=== PATIENT | female | born 1965 | race American Indian/Alaskan Native ===

== ENCOUNTER 2017-07-15 16:23 | Emergency (ER) | payer SELFPAY ==
[2017-07-15] MEDS ORDERED: ZESTRIL PO ONE (18:36)
[2017-07-15] MEDS ORDERED: DELTASONE PO ONE (18:37)
[2017-07-15] MEDS ORDERED: TRIMOX PO ONE (18:38)
--- NOTE | 2017-07-15 18:47 | Emergency Department Report ---
HPI - General Chief Complaint: Medical Clearance Time Seen by Provider: 07/15/17 18:34 - HPI HPI: 51-year-old -[place] female comes in for complaint of facial swelling since Monday. Patient reports that she started with a bump to the back of her mouth on Monday and that subsided but didn't start having left side swelling to her face and neck. Patient reports that she's tried salt water swallows. Patient states that the possible she has a bad tooth. It was noted that patient has elevated blood pressure. Patient reported that she noticed elevation of her blood pressure when she checked it at [employer] the other day. She has no past medical history currently has no primary care has no current medications. Up-to-date on her vaccines and she is having sporadic periods going through menopause. ED Past Medical Hx - Past Medical History Previous Medical History?: No - Surgical History Past Surgical History?: No - Social History Smoking Status: Never Smoker Substance Use Type: None - Medications Home Medications: Home Medications Medication Instructions Recorded Confirmed Last Taken Type Amoxicillin [Trimox CAP] 500 mg PO TID #30 capsule 07/15/17 Unknown Rx Hydrochlorothiazide [Hctz] 12.5 mg PO QDAY #30 capsule 07/15/17 Unknown Rx amLODIPine [Norvasc] 10 mg PO DAILY #30 tab 07/15/17 Unknown Rx ED Review of Systems ROS: Stated complaint: FACIAL SWELLING Other details as noted in HPI Constitutional: denies: chills, fever Eyes: denies: eye pain, eye discharge, vision change ENT: other Respiratory: denies: cough, shortness of breath, wheezing Cardiovascular: denies: chest pain, palpitations Endocrine: no symptoms reported Gastrointestinal: denies: abdominal pain, nausea, diarrhea Genitourinary: denies: urgency, dysuria, discharge Musculoskeletal: denies: back pain, joint swelling, arthralgia Skin: denies: rash, lesions Neurological: denies: headache, weakness, paresthesias Psychiatric: denies: anxiety, depression Hematological/Lymphatic: denies: easy bleeding, easy bruising Physical Exam - Physical Exam Vital Signs: Vital Signs 07/15/17 16:26 Temperature 98.8 F Pulse Rate 106 H Respiratory 20 Rate Blood Pressure 171/97 O2 Sat by Pulse 98 Oximetry Physical Exam: GENERAL: Alert and oriented x3, no apparent distress, Normal Gait, atraumatic. HEAD: Head is normocephalic and a-traumatic. Mild left side facial swelling EYES: Extra ocular muscles are intact. Pupils are equal, round, and reactive to light and accommodation. EARS: symetrical, atraumatic, non tender, ear canal clear and moderate cerumen, tympanic membrance non inflamed. gross auditory nml bilaterally. NOSE: Nose symetrical, Nontender,Nares appeared normal. MOUTH:Mouth is well hydrated and without lesions. Tonsils nonerythematous or swollen, Uvula midline, Tongue not elevated. Mucous membranes are moist. Posterior pharynx clear, no exudate or lesions. Patent airways. NECK: Supple. Non edematous, No carotid bruits. Mild left lymphadenopathy. LUNGS: Symetrical with respiration, No wheezing, no rales or crackles, CTAB. HEART: S1, S2 present, regular rate and rhythm without murmur, no rubs, no gallops. EXTREMITIES/MUSCULOSKELETAL: No cyanosis, clubbing, rash, lesions or edema. Full ROM bilaterally. UE/LE Pulses 2+ bilaterally. LE and UE 5+ strength bilaterally NEUROLOGIC: No focal Deficit, Cranial nerves II through XII are grossly intact. No loss of sensation, No facial droop, PSYCHIATRIC: Mood is congruent with affect, denies suicidal or homicidal ideations. SKIN: Warm and dry, No lesions, No ulceration or induration present ED Course Vital Signs 07/15/17 16:26 Temperature 98.8 F Pulse Rate 106 H Respiratory 20 Rate Blood Pressure 171/97 O2 Sat by Pulse 98 Oximetry - Reevaluation(s) Reevaluation #1: 07/15/17 22:21 Reevaluated patient since blood pressures been elevated patient denies any shortness of breathing she denies any chest pain she reports that she is voiding with no problems she is able to drink fluids she has no headache no nausea no vomiting no change in vision. I discussed the patient is very imperative that she follows up with her primary care provider I have referred her to [facility]. ED Medical Decision Making - Medical Decision Making Patient has been evaluated by this provider fast track. I discussed the patient will place her on antibiotics and steroids during her visit here. And have her follow up with her primary care provider which I will list one below. Critical care attestation.: If time is entered above; I have spent that time in minutes in the direct care of this critically ill patient, excluding procedure time. ED Disposition Clinical Impression: Elevated blood pressure reading, Left facial swelling Disposition: DC-01 TO HOME OR SELFCARE Is pt being admited?: No Does the pt Need Aspirin: No Condition: Stable Instructions: Heart Healthy Diet (ED), DASH Eating Plan (ED), Hypertension (ED) Additional Instructions: Please take antibiotics as prescribed. Please follow-up with the primary care provider I have listed one below. Prescriptions: amLODIPine [Norvasc] 10 mg PO DAILY #30 tab Amoxicillin [Trimox CAP] 500 mg PO TID #30 capsule Hydrochlorothiazide [Hctz] 12.5 mg PO QDAY #30 capsule Referrals: CABRERA PACHECO MD [Primary Care Provider] - 3-5 Days [facility] [Provider Group] - 3-5 Days Forms: Work/School Release Form(ED)
[2017-07-15] MEDS ORDERED: CATAPRES PO ONE (19:17)
[2017-07-15 21:37] VITALS: BP 170/112
== END 2017-07-15 22:30 | disposition home or self-care (01) ==
LOC: ED 16:23
DX: R03.0 Elevated blood-pressure reading, without diagnosis of hypertension (principal); R60.9 Edema, unspecified
CPT/HCPCS: 99282; J7512